=== PATIENT | female | born 1965 | race Caucasian/White ===

== ENCOUNTER → 2016-12-30 | Outpatient (CLI) | payer BC, OTHER ==
[~2016-12-30] MED LIST: DULE100A IN; MULTTAB12 PO; OMEP20CA3 PO; VIACTIVE PO; [UNRECOGNIZED DRUG - CODE] PO
--- NOTE | 2016-12-30 13:28 | REPMRS ---
Patient History The patient states she had a clinical breast exam in 11/22 Patient is postmenopausal and is nulliparous. Family history of breast cancer in sister under age 50, unknown cancer in maternal grandmother at age 50 or over, and unknown cancer in maternal cousin under age 50. Taking estrogen for 2 years. Digital Woman Screen Mammo: December 30, 2016 - Exam #: [id number] Bilateral CC and MLO view(s) were taken. Technologist: Ashley Jensen, Technologist Prior study comparison: December 19, 2015, digital woman screen mammo performed at [facility]. October 11, 2014, digital woman screen mammo performed at [facility]. September 11, 2012, digital woman screen mammo performed at [facility]. FINDINGS: There are scattered fibroglandular densities. There has been no change in the appearance of the mammogram from the prior studies. There is a mild amount of scattered fibroglandular density which is fairly symmetric. There is no interval development of dominant mass, architectural distortion, or clustered microcalcification suggestive of malignancy. ASSESSMENT: BI-RADS/ACR category 1 mammogram. Negative. Recommendation Routine screening mammogram in 1 year (for women over age 40). This mammogram was interpreted with the aid of an FDA-approved computer-aided dectection system. Electronically Signed By: Rainer Hensley MD 12/30/16 2085
== END ==
LOC: M WHC 12:41
PROVIDERS: ATTEND Obstetrics & Gynecology Gynecology
DX: Z12.31 Encounter for screening mammogram for malignant neoplasm of breast (principal); Z78.0 Asymptomatic menopausal state; Z80.3 Family history of malignant neoplasm of breast; Z79.899 Other long term (current) drug therapy

== ENCOUNTER → 2018-03-10 | Outpatient (CLI) | payer BC | LOC: M WHC 12:29 | DX: Z12.31 Encounter for screening mammogram for malignant neoplasm of breast (principal); D24.2 Benign neoplasm of left breast | CPT/HCPCS: 77067 ==

== ENCOUNTER → 2018-08-23 | Outpatient (REF) | payer OTHER ==
[2018-08-23 18:11] LABS: BASO % 0.5 % (0.0-1.0); EOS % 12.3 % (0.0-3.0); HEMATOCRIT 41.9 % (36.0-47.0); HEMOGLOBIN 13.6 g/dl (12.0-15.5); LYMPH # 1.2 10^3/uL (1.5-4.5); LYMPH % 15.5 % (24.0-44.0); MEAN CORPUSCULAR HEMOGLOBIN 29.1 pg (27.0-33.0); MEAN CORPUSCULAR HGB CONC 32.5 g/dl (32.0-36.5); MEAN CORPUSCULAR VOLUME 89.5 fl (80.0-96.0); MONO # 0.5 10^3/uL (0.0-0.8); MONO % 6.5 % (0.0-5.0); NEUTROPHILS % 64.9 % (36.0-66.0); PLATELET COUNT, AUTOMATED 276 10^3/uL (150-450); RED BLOOD COUNT 4.68 10^6/uL (4.00-5.40); WHITE BLOOD COUNT 7.7 10^3/uL (4.0-10.0)
[2018-08-27 08:49] LABS: D001-IgE D pteronyssinus <0.10 kU/L (Class 0); E001-IgE Cat Epith/Dander < 0.10 kU/L (Class 0); E005-IgE Dog Dander 0.41 kU/L (Class I); G002-IgE Bermuda Grass < 0.10 kU/L (Class 0); G008-IgE Kentucky Bluegrass < 0.10 kU/L (Class 0); M001-IgE Penicillium chrysogen < 0.10 kU/L (Class 0); M002 IgE Cladosporium herbaru < 0.10 kU/L (Class 0); M003 IgE Aspergillus fumigatu < 0.10 kU/L (Class 0); M006-IgE Alternaria alternata < 0.10 kU/L (Class 0); T001-IgE Maple/Box Elder < 0.10 kU/L (Class 0); T003-IgE Common Silver Birch < 0.10 kU/L (Class 0); T006-IgE Cedar, Mountain < 0.10 kU/L (Class 0); T007-IgE Oak, White < 0.10 kU/L (Class 0); T008-IgE Elm, American < 0.10 kU/L (Class 0); T015-IgE Ash, White < 0.10 kU/L (Class 0); T041-IgE Hickory, White < 0.10 kU/L (Class 0); T070-IgE White Mulberry < 0.10 kU/L (Class 0); W001-IgE Ragweed, Short < 0.10 kU/L (Class 0); W009-IgE Plantain, English < 0.10 kU/L (Class 0); W014-IgE Pigweed, Rough < 0.10 kU/L (Class 0); W018-IgE Sheep Sorrel < 0.10 kU/L (Class 0)
== END ==
LOC: M LAB REF 16:59
PROVIDERS: ATTEND Physician Assistant
DX: J45.998 Other asthma (principal)

== ENCOUNTER → 2018-10-09 | Outpatient (CLI) | payer BC, OTHER ==
[~2018-10-09] MED LIST changes: +PROHANCE 279.3MG/ML 15ML VIAL (A9576) As Ordered ONE; +PROHANCE 279.3MG/ML 5ML VIAL (A9576) As Ordered ONE
--- NOTE | 2018-10-09 16:53 | REP ---
MRI BILATERAL BREASTS WITH AND WITHOUT CONTRAST USING 17 ML PROHANCE: Multiple sequences obtained in the axial, coronal and sagittal planes. Dynamic imaging is performed following intravenous administration of gadolinium. Images are evaluated in the [employer] software, with the subtraction images, color overlay images and motion directed images evaluated. Correlation made with mammogram 03/10/2018. There is mild scattered heterogenous fibroglandular tissue bilaterally. There is mild scattered background parenchymal enhancement bilaterally. No area of suspicious enhancement is seen. There is no enhancing mass or morphologic abnormality. There is no evidence of axillary adenopathy bilaterally. 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 IMPRESSION: ACR 2 benign. Bilateral breast MRI with no suspicious mass or morphologic abnormality bilaterally. Recommend followup screening breast MRI in one year. Electronically Signed by Jm Oshea MD 10/10/2018 10:31 A
== END ==
LOC: M RAD 12:44
PROVIDERS: ATTEND Internal Medicine
DX: Z12.31 Encounter for screening mammogram for malignant neoplasm of breast (principal)
CPT/HCPCS: A9576; C8908

== ENCOUNTER → 2018-12-19 | Outpatient (REF) | payer OTHER, BC ==
[~2018-12-19] MED LIST changes: -PROHANCE 279.3MG/ML 15ML VIAL (A9576) As Ordered ONE; -PROHANCE 279.3MG/ML 5ML VIAL (A9576) As Ordered ONE
[2018-12-19 22:07] LABS: APPEARANCE, URINE HAZY (CLEAR); BACTERIA, URINE AUTO 1+ (NEGATIVE); BILIRUBIN, URINE AUTO NEGATIVE (NEGATIVE); BLOOD, URINE BLOOD 2+ (NEGATIVE); COLOR, URINE YELLOW (YELLOW); GLUCOSE, URINE (UA) AUTO NEGATIVE (NEGATIVE); KETONE, URINE AUTO NEGATIVE (NEGATIVE); LEUKOCYTE ESTERASE, URINE AUTO 1+ (NEGATIVE); MUCUS, URINE SMALL (NEGATIVE); NITRITE, URINE AUTO POSITIVE (NEGATIVE); PROTEIN, URINE AUTO NEGATIVE (NEGATIVE); RBC, URINE AUTO 37 /HPF (0-3); SPECIFIC GRAVITY URINE AUTO 1.017 (1.002-1.035); SQUAMOUS EPITHELIAL CELL UR AU 0 /HPF (0-6); UROBILINOGEN, URINE AUTO 0.2 mg/dL (0.0-2.0); WBC, URINE AUTO 59 /HPF (0-3)
== END ==
LOC: M LAB REF 08:27
PROVIDERS: ATTEND Physician Assistant Medical
DX: N39.0 Urinary tract infection, site not specified (principal)

== ENCOUNTER → 2019-03-16 | Outpatient (CLI) | payer BC ==
[~2019-03-16] MED LIST changes: +OMEP1CAP73 PO; -OMEP20CA3 PO
--- NOTE | 2019-03-16 14:06 | REPMRS ---
Patient History The patient states she had a clinical breast exam in 02/2019 Patient is postmenopausal and is nulliparous. Family history of breast cancer under age 50 in sister, pancreatic cancer under age 50 in maternal cousin. Taking estrogen for 4 years. 3D TOMOSYNTHESIS WAS PERFORMED. Digital Woman Screen Mammo: March 16, 2019 - Exam #: [id number] Bilateral CC and MLO view(s) were taken. Technologist: Ashley Jensen, Technologist Prior study comparison: March 10, 2018, bilateral digital woman screen mammo performed at [facility]. December 30, 2016, digital woman screen mammo performed at [facility]. FINDINGS: The breast tissue is heterogeneously dense. This may lower the sensitivity of mammography. There has been no change in the appearance of the mammogram from the prior studies. There is a moderate amount of residual fibroglandular tissue which is fairly symmetric. There is no interval development of dominant mass, areas of architectural distortion, or clustered microcalcification typical of malignancy. Assessment: BI-RADS/ACR category 1 mammogram. Negative Mammogram. Recommendation Routine screening mammogram in 1 year (for women over age 40). This mammogram was interpreted with the aid of an FDA-approved computer-aided dectection system. THE LIFETIME RISK OF BREAST CANCER IS 22.8%, THEREFORE SUPPLEMENTAL SCREENING MRI OF THE BREASTS IS RECOMMENDED IN 6 MONTHS. Electronically Signed By: Jm Oshea MD 03/16/19 [id number]
== END ==
LOC: M WHC 12:47
PROVIDERS: ATTEND Obstetrics & Gynecology Gynecology
DX: Z12.31 Encounter for screening mammogram for malignant neoplasm of breast (principal)

== ENCOUNTER → 2019-11-09 | Outpatient (CLI) | payer BC, OTHER | LOC: M LABSMTC 09:56 | PROVIDERS: ATTEND Family Medicine | DX: Z11.59 Encounter for screening for other viral diseases (principal); Z20.89 Contact with and (suspected) exposure to other communicable diseases ==

== ENCOUNTER → 2020-05-30 | Outpatient (CLI) | payer BC ==
--- NOTE | 2020-06-02 07:33 | REPMRS ---
Patient History The patient states she had a clinical breast exam in February 2020.Family history of breast cancer under age 50 in sister, pancreatic cancer under age 50 in maternal cousin. Taking estrogen for 4 years. 3D TOMOSYNTHESIS WAS PERFORMED. Volpara breast density b. Indicated problem(s): left breast other indicated problem. Left breast heaviness and left breast rash times 2 weeks. Diagnostic Bilateral Mammo: May 30, 2020 - Exam #: [id number] Bilateral CC and MLO view(s) were taken. Technologist: Nikky Turk, Technologist Prior study comparison: March 16, 2019, bilateral digital woman screen mammo performed at [facility]. March 10, 2018, bilateral digital woman screen mammo performed at [facility]. FINDINGS: There are scattered fibroglandular densities. There is a fairly symmetric fibroglandular pattern in both breasts. There has been no interval development of masses, areas of architectural distortion or clusters of microcalcifications typical of malignancy. Assessment: BI-RADS/ACR category 2 mammogram. Benign Findings. Recommendation Routine screening mammogram of both breasts in 1 year (for women over age 40). This mammogram was interpreted with the aid of an FDA-approved computer-aided dectection system. THE LIFETIME RISK OF BREAST CANCER IS 21.7%, THEREFORE SUPPLEMENTAL SCREENING MRI OF THE BREASTS IS RECOMMENDED IN 6 MONTHS. Electronically Signed By: Jm Oshea MD 05/30/20 [id number]
== END ==
LOC: M WHC 12:19
PROVIDERS: ATTEND Obstetrics & Gynecology Gynecology
DX: Z12.31 Encounter for screening mammogram for malignant neoplasm of breast (principal); Z80.3 Family history of malignant neoplasm of breast; Z92.23 Personal history of estrogen therapy
CPT/HCPCS: 77066; G0279

== ENCOUNTER → 2020-09-11 | Outpatient (CLI) | payer BC, OTHER ==
[~2020-09-11] MED LIST changes: +PROHANCE 279.3MG/ML 15ML VIAL As Ordered ONE; +PROHANCE 279.3MG/ML 5ML VIAL As Ordered ONE
--- NOTE | 2020-09-12 08:20 | REP ---
INDICATION: [facility]K CA BREAST SCREENING. COMPARISON: Comparison breast MRI study October 09, 2018. Comparison mammography May 30, 2020. TECHNIQUE: Three Madhavi MRI imaging was performed with a dedicated breast coil. Axial, coronal, and sagittal T1 and T2 weighted scans were obtained with and without fat saturation in the usual fashion. The study includes dynamically acquired post gadolinium-enhanced imaging with image subtraction. Maximum intensity projection and multi planar reformation imaging is included as well. This study is interpreted with the aid of [employer] an FDA approved computer aided detection (CAD) software program, on a dedicated breast MRI workstation. The gadolinium enhancement dose is eighteen mL of intravenous ProHance. FINDINGS: There is a mild pattern of fibroglandular tissue bilaterally. No evidence of axillary or internal mammary lymphadenopathy is seen. No suspicious morphologic abnormality is seen on pre or postcontrast images. No suspicious area of enhancement and/or washout is seen on dynamically acquired post contrast images. Subtraction images are unremarkable. No change from comparison study. The previously noted small left inferolateral fibroadenoma is again seen with sub threshold contrast enhancement and no change in size or other parameters. There is a small subcentimeter focus of enhancement in the dermis on the medial aspect of the left breast which is unchanged from 2019 and not felt to be clinically significant. IMPRESSION: . Stable BI-RADS category 2 benign bilateral breast MRI findings. <Electronically signed by Rainer Hensley > 09/12/20 0810
== END ==
LOC: M RAD 14:15
PROVIDERS: ATTEND Obstetrics & Gynecology
DX: R92.8 Other abnormal and inconclusive findings on diagnostic imaging of breast (principal); Z80.3 Family history of malignant neoplasm of breast; Z87.891 Personal history of nicotine dependence; Z91.89 Other specified personal risk factors, not elsewhere classified
CPT/HCPCS: A9576; C8908

== ENCOUNTER → 2024-09-12 | Outpatient (REF) | payer OTHER ==
[~2024-09-12] MED LIST changes: -DULE100A IN; +MOME13HF8 IN; -PROHANCE 279.3MG/ML 15ML VIAL As Ordered ONE; -PROHANCE 279.3MG/ML 5ML VIAL As Ordered ONE
== END ==
LOC: M LAB REF 13:04
PROVIDERS: ATTEND Internal Medicine
DX: R10.11 Right upper quadrant pain (principal)